=== PATIENT | female | born 1980 | race Caucasian/White ===

== ENCOUNTER → 2023-04-21 15:06 | Outpatient (BNVA) | payer OTHER, SELFPAY | PROVIDERS: Visit Provider Physician Assistant Surgical ==

== ENCOUNTER 2023-05-14 13:00 | Outpatient (AMB) | payer OTHER, SELFPAY ==
--- NOTE | 2023-05-14 13:00 | MHC.OFFVISWM ---
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 Pt was enrolled in the [employer] FDA study 2017, had placebo and then endogastric ballon for 4 months. TBWL was about 35 lbs. Then she broke her ankle twice and had a and has had weight gain. She has regained about 30 lbs. Has been on and off Ozempic for month, restarted about 1 month ago and has lost 6 lbs, will be switching to Wegovy later this week. PCP referred her for nephrology consult done via EMR leaking kidneys, blood and protein in her urine chronic for 15 years - recommended weight loss. In process of having rheumatology consult - appt scheduled for October 2023. Due to positive ARVIND. Has alot of muscle pains. Her goal is to weigh about 145 lbs. She reports first being concerned about her weight for many years.She has tried multiple methods of weight loss without permanent results. She lives with her and 2 children. She works 5 days per week from 7:30 am to 4pm. Labs done - March 2023 CRP - 3.9 Hgb A1C - 5.8 CMP - glucose 110, BUN 23, CREA 23, EFGR 1.09, t protein 7.2, alb 4.4, AST - 47, ALT - 17, ALK - 19 cholesterol 175, trg - 84, HDL 46 LDL 113, TSH - 1.3, B12 - 304, She wakes at: 5:30 - 6:15 am, bed at 9:30 - 10 pm Breakfast: coffee 1 cup with sugar free creamer. 10 am - leftovers - meat and vegetables. water with [place]. Lunch: skips lunch everyday Dinner: 4:30 pm - example --2 turkey tacos, guacamole and cheese, lettuce and tomato. Sipping on her soda After dinner: no snacks Other snacks: may have a yogurt in afternoon Liquids: 2 cans of Coke 0 per day in afternoon - sips all day. No juice Alcohol intake: none, tobacco: none, marijuana: none Exercise: was working with a obedience trainer for awhile until 2 months ago. Has gym membership with a [employer]. Last mammogram: will schedule now Last pap smear: will schedule now control method: combined contraceptive pill YADY:3 ESS:5 GERD:3 QOL: 103 PFSH Surgical History Hx of endoscopy Hx of colonoscopy Hx of dilation and curettage Hx of laparoscopy Hx of section Hx of wisdom tooth extraction Social History (Updated 04/22/23 @ 07:44 by Binta Horne [facility]) Patient Tobacco Use Status: Never used Tobacco Assessment & Plan Assessment & Plan (1) Obesity: Code(s): E66.9 - Obesity, unspecified Plan: This is a 42 yo woman with obesity and multiple medical conditions who qualifies for SWL but wants to start MWL program. Blood work - vitamin levels only - see HPI are ordered. She will start SWL classes and watch all classes before her next appt with Geovanna. 1. Adequate sleep of 7-8 hours per night discussed 2. Healthy meal plan - stop skipping meals and stop all sweetened drinks All meals/MR's need to take 20 minutes to complete Coffee -with UAM over 30 minutes only. Stop soda - and stop sipping on caffeien all day. 9 am - Celebrate Rebuild protein shake with water or UAM 12 pm - protein shake with water or UAM 3 pm- bar 5 pm- dinner of 12 forks lean protein, 12 forks vegetable, 1 serving fruit Exercise - Cardio 5 d week - walk 20 minutes mile - 300 calories. OR treadmill at speed 2.8 - 3.5 (3 minutes), no incline - to burn 300 calories The importance of avoiding and breast feeding for at least 18 months after bariatric surgery was discussed in the information session and was reinforced today. Pt will purchase body composition analyzer (recommended list given to patient) and weight herself weekly. Next appt with Geovanna in 4 weeks.Text me with any questions and weekly weights. Patient is morbidly obese and is not considered stable at this time.?I spent a total of 60 minutes reviewing/updating records, examining the patient and counseling the patient on weight management as detailed above. (2) HTN (hypertension), benign: Code(s): I10 - Essential (primary) hypertension (3) Hyperlipidemia: Code(s): E78.5 - Hyperlipidemia, unspecified (4) PCOS (polycystic ovarian syndrome): Code(s): E28.2 - Polycystic ovarian syndrome (5) Pre-diabetes: Code(s): R73.03 - Prediabetes Plan see above Orders: Orders Insulin Today E66.9 - Obesity, unspecified, E78.5 - Hyperlipidemia, unspecified, I10 - Essential (primary) hypertension, R73.03 - Prediabetes Vitamin D 25-OH Total Today E66.9 - Obesity, unspecified, E78.5 - Hyperlipidemia, unspecified, I10 - Essential (primary) hypertension, R73.03 - Prediabetes Vitamin A Today E66.9 - Obesity, unspecified, E78.5 - Hyperlipidemia, unspecified, I10 - Essential (primary) hypertension, R73.03 - Prediabetes Vitamin B1 Today E66.9 - Obesity, unspecified, E78.5 - Hyperlipidemia, unspecified, I10 - Essential (primary) hypertension, R73.03 - Prediabetes Telehealth Telehealth Location of provider rendering services: practice address Location of patient: address on file Patient Identification confirmed using: Name, : Yes Telehealth method: video Patient verbally consented to treatment: Yes Patient verbally consented to billing insurance company: Yes Patient informed of any privacy concerns related to visit: Yes Coding Level of Care Code Tele [facility] Pt Level 5 (40873) Diagnoses Obesity E66.9 HTN (hypertension), benign I10 Hyperlipidemia E78.5 PCOS (polycystic ovarian syndrome) E28.2 Pre-diabetes R73.03
== END 2023-05-14 13:59 | disposition home or self-care (01) ==
LOC: HO.HBS 13:48
PROVIDERS: Visit Provider Physician Assistant
DX: E66.9 Obesity, unspecified (principal); I10 Essential (primary) hypertension; E78.5 Hyperlipidemia, unspecified; E28.2 Polycystic ovarian syndrome; R73.03 Prediabetes
CPT/HCPCS: 99205

== ENCOUNTER → 2023-05-14 13:00 | Outpatient (BNVA) | payer OTHER, SELFPAY | PROVIDERS: Visit Provider Physician Assistant ==

== ENCOUNTER 2023-06-12 10:38 | Outpatient (AMB) | payer OTHER, SELFPAY ==
--- NOTE | 2023-06-12 10:03 | MHC.AMNUTRGE ---
Intake VS Expanded 06/12/23 10:46 Height 5 ft 1.5 in Weight 185 lb BMI 34.4 Intake Visit Reasons: VIDEO Initial Nutrition MWL Allergies Sulfa Allergy (Unknown, Uncoded 05/31/18 00:00) hives HPI Nutrition Presentation Details MWL Reason for consult elevated BMI Diet Assmnt Details Indulged this past week with [place] [employer] day, had pizza several times. Has a busy job, and forgets to eat sometimes during the day. The comes home and feels famished . Makes poor food chocies sometimes because of this. Is looking for quick and easy meals/snacks. 2 [employer] Lean shakes per day dislikes the protein bars, has tried about 10 different brands. doing [place] yogurt instead. would like some other options dinner : mainly protein and veg Exercise: Is having some muscle weakness and being evaluated for this. walks about 2 miles per night, power walking Taking Wegovy 1.0mg , was previously on 0.25 of ozempic Watched classes. May be interesed in SWL but would like to continue with MWL at this time. Previous weight loss methods attempted Pt was enrolled in the [employer] FDA study 2018, had placebo and then endogastric ballon for 4 months. TBWL was about 35 lbs. Then she broke her ankle twice and had a and has had weight gain. She has regained about 30 lbs. Has been on and off Ozempic for month, restarted about 1 month ago and has lost 6 lbs, will be switching to Wegovy later this week. Dietary counseling reduction Who buys your food self Who prepares/cooks your food self Lifestyle Eating out 1-3 times/week Diagnosis Nutrition problem #1 overweight/obesity As related to (etiology) #1 excess energy intake and physical inactivity As evidenced by (sign/symptom) #1 high BMI Monitoring/Goals Nutrition problem monitoring total energy intake, level of knowledge/skill, total PRO intake, total CHO intake, weight and oral fluids Outcome progress progressing Learning/Education Readiness to learn excellent Stages of change action Educational materials provided Yes Most Recent Diabetes Results: No Data to Display PFSH Surgical History Hx of endoscopy Hx of colonoscopy Hx of dilation and curettage Hx of laparoscopy Hx of section Hx of wisdom tooth extraction Social History (Updated 04/22/23 @ 07:44 by Binta Horne [facility]) Patient Tobacco Use Status: Never used Tobacco Assessment & Plan Assessment & Plan (1) Obesity (BMI 30-39.9): Code(s): E66.9 - Obesity, unspecified Plan Pt felt appt was very helpful. Provided education and evidence based recs for weight loss. provided recipes, resources, and tips for sticking to healthy eating plan. she will continue f/u with [place] Telehealth Telehealth Location of provider rendering services: practice address Location of patient: address on file Patient Identification confirmed using: Name, : Yes Telehealth method: voice only Patient verbally consented to treatment: Yes Patient verbally consented to billing insurance company: Yes Patient informed of any privacy concerns related to visit: Yes Minutes spent on Phone/Video with Pt.: 45 Coding Level of Care Code Nutr Indiv Intake (20870) Diagnoses Obesity (BMI 30-39.9) E66.9 Time Spent (min) 45
[2023-06-12 10:46] VITALS: BMI 34.4
== END 2023-06-12 10:43 | disposition home or self-care (01) ==
LOC: HO.HBS 10:38
PROVIDERS: Visit Provider Dietitian, Registered
DX: E66.9 Obesity, unspecified (principal)

== ENCOUNTER → 2023-06-12 10:38 | Outpatient (BNVA) | payer OTHER, SELFPAY | PROVIDERS: Visit Provider Dietitian, Registered | DX: E66.9 Obesity, unspecified (principal); Z68.34 Body mass index [BMI] 34.0-34.9, adult; Z71.3 Dietary counseling and surveillance | CPT/HCPCS: 97802 ==

== ENCOUNTER 2023-08-07 11:42 | Outpatient (AMB) | payer OTHER, SELFPAY ==
[2023-08-07 11:10] VITALS: BMI 34.1
--- NOTE | 2023-08-07 11:10 | MHC.OFFVISWM ---
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 Her initial presentation to the weight management program was on 04/21/2023 with a weight of 190.4 lb and a BMI of 35.4. Weight today is 183.8 lb with a BMI of 34.1. Weight at her last visit on 06/12/2023 was 185 lb. She states that she continues on outpatient prescription of Wegovy, increase to 1.7 mg on 07/28/2023. She is tolerating it ok. She had a plateau and it was increased by endocrine. She states that she is interested in pursuing a surgical weight loss option although she would like to wait to pursue MWL until end of summer to make sure she is committed to the surgical option. Has 2 kids, a 2 yo and 15 yo. She has been having 2 HB eggs in the morning and trying to have portion control. She has had several meals with pizza or ice cream. c/o bursitis in both hips. she is being followed by rheumatology. she has also changed to [facility] lean shake w blackberries. Would prefer to use lean prtoein bars 15 gm protein each wakes at 630, bed at 9 pm, dinner at 5 meal plan: 9 am - Celebrate Rebuild protein shake with water or UAM 12 pm - protein shake with water or UAM 3 pm- bar 5 pm- dinner of 12 forks lean protein, 12 forks vegetable, 1 serving fruit Exercise - walking 2 mi per night, Cardio 5 d week - walk 20 minutes mile - 300 calories. OR treadmill at speed 2.8 - 3.5 (3 minutes), no incline - to burn 300 calories PFSH Surgical History Hx of endoscopy Hx of colonoscopy Hx of dilation and curettage Hx of laparoscopy Hx of section Hx of wisdom tooth extraction Social History (Updated 04/22/23 @ 07:44 by Binta Horne [facility]) Patient Tobacco Use Status: Never used Tobacco Telehealth Telehealth Telehealth Platform: Telephone Location of provider rendering services: practice address Location of patient: address on file Patient Identification confirmed using: Name, : Yes Telehealth method: voice only Patient verbally consented to treatment: Yes Patient verbally consented to billing insurance company: Yes Patient informed of any privacy concerns related to visit: Yes Minutes spent on Phone/Video with Pt.: 20 Assessment & Plan Assessment & Plan (1) Obesity: Code(s): E66.9 - Obesity, unspecified Category: Medical Plan: Patient states that she would like to consider the surgical weight loss pathway however would like to remain in the medical weight loss pathway until the end of the summer to be sure that she would like to pursue a surgical option. I told her that was okay. Additionally, we discussed commitment to weight loss. We will utilize celebrate rebuild protein shake and G [employer] C lean protein bar. [id number] shake with 1 scoop and 12 oz of unsweetened almond milk or water [id number] another shake 2-4 G [employer] C lean protein bar (15 g protein) 5pm meal with 9 forks protein and 9 forks vegetables Discussed the importance of exercise and she will utilize her treadmill at home with a goal of 300 calories burned per day. Return to clinic 6 weeks.
== END 2023-08-07 12:15 | disposition home or self-care (01) ==
LOC: HO.HBS 11:42
PROVIDERS: Visit Provider Physician Assistant Surgical
DX: E66.9 Obesity, unspecified (principal)
CPT/HCPCS: 99213

== ENCOUNTER → 2023-08-07 11:42 | Outpatient (BNVA) | payer OTHER, SELFPAY | PROVIDERS: Visit Provider Physician Assistant Surgical ==